=== PATIENT | female | born 1940 | race Caucasian/White ===

== ENCOUNTER 2016-11-29 15:46 | Emergency (ER) ==
[2016-11-29 15:52] VITALS: BP 142/85; TEMP 99.1; BMI 29.2
--- NOTE | 2016-11-29 16:49 | CT ---
EXAM: CT lumbar spine without contrast. HISTORY: Lower back pain COMPARISON: None TECHNIQUE: Serial axial images of the spine were obtained from the lower thoracic spine through the pelvis without contrast. These were viewed in multiple planes. FINDINGS: Vertebral bodies demonstrate mild generalized demineralization. There is no lytic or xochitl stic lesion. There is mild wedge deformity at superior aspect of T12. There is minimal facet arthr opathy. The lumbosacral junction is intact. The posterior and transverse processes are normal. L1-L2: Mild facet arthropathy and broad-based disc bulge with no significant central or neural lamar inal narrowing. L2-L3: Broad-based disc bulge and facet arthropathy with no central or neural foraminal narrowing. L3-L4: Broad-based disc bulge with ligamentum flavum hypertrophy and facet hypertrophy contribute to mild bilateral neural foraminal narrowing and minimal central narrowing. L4-L5: Broad-based disc bulge and facet arthropathy and ligamentum flavum hypertrophy contribute to moderate to severe left and moderate right neural foraminal narrowing with mild central narrowing. L5-S1: There is a broad-based disc bulge and facet arthropathy with no central or neural foraminal n arrowing. Limited views of the soft tissues are unremarkable with mild atherosclerotic disease and 2.3 cm low attenuation lesion in the right kidney with Hounsfield units consistent with a cyst. IMPRESSION: 1. No acute compression fracture or subluxation of the lumbar spine. 2. Multilevel degenerative disease most pronounced at L4-L5 with moderate to severe left and modera te right neural foraminal narrowing with mild central narrowing present. If further evaluation is i ndicated, MRI may be obtained. 3. Right renal cyst and moderate atherosclerotic disease.
--- NOTE | 2016-11-29 16:58 | CT ---
EXAM: CT thoracic spine without contrast HISTORY: Back pain. COMPARISON: Thoracic spine x-ray 12/02/2013 TECHNIQUE: Serial axial images of the thoracic spine were obtained without contrast. FINDINGS: There is no acute compression fracture identified. There is mild superior endplate compre ssion deformity at T12 which is minimal and unchanged since 2014. There is scattered lytic and moth -eaten appearance of T9 with no definitive fracture. This appearance is similar when compared to 201 4. There are scattered anterior disc osteophytes. There is scattered facet arthropathy. The soft tissues demonstrate low attenuation right renal cyst. Lungs demonstrate mild dependent ate lectasis bilaterally. The airways are patent. IMPRESSION: 1. No acute compression fracture or subluxation. 2. Unchanged lytic and moth-eaten appearance of T9 and unchanged compression deformity at T12 when compared to exam 2014. 3. Multilevel degenerative disease of the spine. If further evaluation is clinically indicated, MR I may be obtained.
--- NOTE | 2016-11-29 17:25 | ED.PDOC ---
General ED Provider: Dr. GARY WRIGHT Chief Complaint: Back Pain Stated Complaint: BACK PAIN Time Seen by Physician: 16:00 (CHRONIC) Mode of Arrival: Wheelchair Information Source: Patient, Family Exam Limitations: No limitations Nursing and Triage Documentation Reviewed and Agree: Yes Musculoskeletal Complaint Exam - Back Pain Complaint/Exam Mechanism of Injury: Reports: No known trauma Symptoms Are: Still present Timing: Constant Episodes Lasting: Hours Initial Severity: Moderate Current Severity: Moderate Location: Reports: Discrete Character: Reports: Aching, Throbbing, Spasmodic, Stiffness Aggravating: Reports: None Alleviating: Reports: None Associated Signs and Symptoms: Denies: Swelling, Redness, Bruising, Fever, Weakness, Numbness, Tingling, Abdominal pain, Flank pain, Bladder incontinence, Bowel incontinence, Weight loss, Pain with weight bearing Related History: Reports: Similar episode TAD Risk Factors: Reports: None Cauda Equina Risk Factors: Reports: None Epidural Abcess Risk Factors: Reports: None Review of Systems - Review Of Systems Constitutional: Reports: No symptoms Eyes: Reports: No symptoms Ears, Nose, Mouth, Throat: Reports: No symptoms Respiratory: Reports: No symptoms Cardiac: Reports: No symptoms GI: Reports: No symptoms : Reports: No symptoms Musculoskeletal: Reports: Back pain Skin: Reports: No symptoms Neurological: Reports: No symptoms Endocrine: Reports: No symptoms Hematologic/Lymphatic: Reports: No symptoms All Other Systems: Reviewed and Negative Past Medical History - Past Medical History Previously Healthy: No Endocrine: Reports: DM 2 Cardiovascular: Reports: Hypertension Respiratory: Reports: None Hematological: Reports: None Gastrointestinal: Reports: None Genitourinary: Reports: None Neuro/Psych: Reports: None Musculoskeletal: Reports: None Cancer: Reports: None Last Menstrual Period: n/a - Surgical History General Surgical History: Reports: Unknown - Family History Family History: Reports: Unknown - Social History Smoking Status: Never smoker Hx Substance Use: No Alcohol Screening: None Physical Exam - Physical Exam Appearance: Well-appearing, No pain distress, Well-nourished Eyes: WILLIE, EOMI, Conjunctiva clear ENT: Ears normal, Nose normal, Oropharynx normal Respiratory: Airway patent, Breath sounds clear, Breath sounds equal, Respirations nonlabored Cardiovascular: RRR, Pulses normal, No rub, No murmur GI/: Soft, Nontender, No masses, Bowel sounds normal, No Organomegaly Musculoskeletal: Normal strength, ROM intact, No edema, No calf tenderness Skin: Warm, Dry, Normal color Neurological: Sensation intact, Motor intact, Reflexes intact, Cranial nerves intact, Alert, Oriented Psychiatric: Affect appropriate, Mood appropriate Interpretation - Radiology Interpretation Radiology Interpretation By: Radiologist Radiology Results: No acute changes Critical Care Note - Critical Care Note Total Time (mins): 0 Course - Course Orders, Labs, Meds: Orders Category Date Time Status CT LUMBAR SPINE W/O CONTRAST Stat RADS 11/29/16 16:[address] THORACIC SPINE W/O CONTRAST Stat RADS 11/29/16 16:02 Completed Vital Signs: Temp Pulse Resp BP Pulse Ox 11/29/16 15:47 99.1 F 86 16 142/85 H 96 Departure - Departure Time of Disposition: 17:24 Disposition: HOME SELF-CARE Discharge Problem: Backache Instructions: Back Pain (ED), Chronic Back Pain (ED) Condition: Good Pt referred to PMD for follow-up: No Allergies/Adverse Reactions: Allergies No Known Allergies Allergy (Unverified 11/29/16 15:52) Home Medications: Ambulatory Orders Acetaminophen [Mapap] 1 - 2 tab PO Q6H PRN 11/29/16 Aspirin/Dipyridamole 25/200 mg [Aggrenox Capsule] 1 cap PO Q12H 11/29/16 Gabapentin [Neurontin] 400 mg PO TID 11/29/16 Hydrocodone/Acetaminophen [Hydrocodon-Acetaminophen 5-325] 1 each PO Q6H PRN 07/06 Metformin HCl [Metformin HCl ER] 1,000 mg PO DAILY 11/29/16 Metoprolol Succinate [Toprol Xl] 25 mg PO DAILY 11/29/16 Phenytoin Cap [Dilantin] 100 mg PO TID 11/29/16 Quetiapine Fumarate 50 mg PO BEDTIME 11/29/16
== END 2016-11-29 17:36 | disposition home or self-care (01) ==
LOC: ED 15:46
DX: M54.9 Dorsalgia, unspecified (principal); G89.29 Other chronic pain
CPT/HCPCS: 99283